=== PATIENT | male | born 1980 | race Caucasian/White ===

== ENCOUNTER 2021-08-01 18:47 | Emergency (ER) | payer BC, SELFPAY ==
--- NOTE | ~2021-08-01 | XR_ITS ---
EXAMINATION: XR CHEST CLINICAL INFORMATION: Cough COMPARISON: None TECHNIQUE: Frontal view of the chest was obtained. FINDINGS: No significant abnormality is noted involving the heart, lungs, mediastinum, bony thorax or soft tissues. XR/XR chest 1V IMPRESSION: Unremarkable examination.
[2021-08-01 19:07] VITALS: BP 00/00; PULSE 120; O2SAT 95
[2021-08-01 19:10] VITALS: BP 158/96; PULSE 141; RESP 16; TEMP 36.6; O2SAT 96; BMI 26.6
--- NOTE | 2021-08-01 19:20 | ED_ITS ---
HPI - Psych General Chief Complaint: ETOH/Substance Use <ROXY Weeks - Last Filed: 08/02/21 02:44> Stated Complaint: OD <ROXY Weeks Last Filed: 08/02/21 02:44> Time Seen by Provider: 08/01/21 19:14 <ROXY Weeks Last Filed: 08/02/21 02:44> Source: patient and EMS <ROXY Weeks Last Filed: 08/02/21 02:44> Mode of arrival: EMS <ROXY Weeks Last Filed: 08/02/21 02:44> Limitations: no limitations <ROXY Weeks Last Filed: 08/02/21 02:44> History of Present Illness HPI Narrative: This is a 40-year-old male no significant medical history presenting to the emergency department via EMS. According to patient patient fell asleep at the end of some [place] driveway, and was found by check a [employer] who then called EMS. Patient tells me he is not sure why he fell asleep he tells me he could have passed out. He tells me he takes Percocets and he thinks that maybe this could have caused it. He tells me he is under lot of stress however, he tells me is a 16-year-old daughter and financially this is a lot. He tells me he is a single father. He tells me he has not been using any drugs. He denies alcohol. Denies visual, auditory and tactile hallucinations. Denies SI and HI. Denies medical complaints. Upon my examination he appears diaphoretic. Per ems it was reported to them that he was foaming at the mouth. No seziure hx. No urine or bowel incontinece, no tongue trauma and patient is a&o X4 doesnt appear to be post ictal. <ROXY Weeks Last Filed: 08/02/21 02:44> MD complaint: anxiety <ROXY Weeks Last Filed: 08/02/21 02:44> Onset (ago): day(s) (1) <ROXY Weeks Last Filed: 08/02/21 02:44> Duration: constant <ROXY Weeks Last Filed: 08/02/21 02:44> Relieving factors: none <ROXY Weeks Last Filed: 08/02/21 02:44> Exacerbating factors: none <ROXY Weeks Last Filed: 08/02/21 02:44> Associated psychiatric symptoms: none <ROXY Weeks Last Filed: 08/02/21 02:44> Associated symptoms: denies other symptoms <ROXY Weeks Last Filed: 08/02/21 02:44> Treatments prior to arrival: none <ROXY Weeks Last Filed: 08/02/21 02:44> Related Data Home Medications: Previous Rx's Medication Instructions Recorded cephalexin 500 mg tablet 500 mg PO Q6H 7 Days #28 tab 08/01/21 doxycycline hyclate 100 mg capsule 100 mg PO BID 7 Days #14 cap 08/01/21 naloxone 4 mg/actuation nasal spray 4 mg INTRANASAL Q2M PRN #2 ea 08/01/21 <ROXY Weeks Last Filed: 08/02/21 02:44> Allergies/Adverse Reactions: Allergies Allergy/AdvReac Type Severity Reaction Status Date / Time Penicillins Allergy Severe Unknown Verified 08/01/21 22:00 <ROXY Weeks Last Filed: 08/02/21 02:44> Review of Systems Review of Systems: Constitutional : No Weight loss, No Fever, No Chills, No Fatigue, No Malaise ENT/Mouth : No sore throat, No Rhinorrhea Eyes: No Eye Pain, No Swelling, No Redness Cardiovascular : No Chest Pain, No SOB, No Dyspnea on Exertion, No Orthopnea, No Edema, No Palpitations Respiratory : No Cough, No Sputum, No Wheezing Gastrointestinal : No Nausea, No Vomiting, No Diarrhea, No Constipation, No abdominal Pain, No Hematochezia, No Melena Genitourinary : No Dysuria, No Urinary Frequency, No Hematuria, Musculoskeletal : No joint pain, No Myalgias, No Joint Swelling Skin : No Skin Lesions, No rash Neuro : No Weakness, No Numbness, No Dizziness, No Headache Psych : No Anxiety/Panic, No Depression All other systems reviewed and are negative <ROXY Weeks - Last Filed: 08/02/21 02:44> [facility] Past Medical History Attestation statement: The following information was validated with the patient. <ROXY Weeks - Last Filed: 08/02/21 02:44> Source: old records reviewed and nursing notes reviewed <ROXY Weeks - Last Filed: 08/02/21 02:44> Medical History: Medical History (Updated 08/01/21 @ 22:10 by ROXY Weeks) Substance abuse <ROXY Weeks - Last Filed: 08/02/21 02:44> Social History Social History: Social History Alcohol intake: current Alcohol intake frequency: 0-2 drinks per day Use of substances other than those prescribed or required for medical reasons: Yes Substance Use Type: Prescription Drugs Substance Use Frequency: Daily Last Used Substance: Hours (ago) Advance Directives: No Advance Directives Information Provided: No <ROXY Weeks - Last Filed: 08/02/21 02:44> Physical Exam Vital Signs: Vital Signs: Last Vital Signs Temp 98.0 F 08/02/21 07:36 Pulse 66 08/02/21 07:36 Resp 14 08/02/21 07:36 BP 117/68 08/02/21 07:36 Pulse Ox 97 08/02/21 07:36 BMI result Body Mass Index 26.6 vss <ROXY Weeks - Last Filed: 08/02/21 02:44> Vital Signs: Last Vital Signs Temp 98.0 F 08/02/21 07:36 Pulse 66 08/02/21 07:36 Resp 14 08/02/21 07:36 BP 117/68 08/02/21 07:36 Pulse Ox 97 08/02/21 07:36 BMI result Body Mass Index 26.6 <ROXY Gannon - Last Filed: 08/02/21 08:39> Appearance: Alert.? Oriented X3.? No acute distress.? Head: Normocephalic, atraumatic, no step-offs or deformities Eyes: Pupils equal, round and reactive to light.? ENT: Pharynx normal.? Neck: Normal inspection.? Neck supple.? CVS: Rapid rate normal rhythm likely sinus tachycardia. Pulses normal.? Respiratory: No respiratory distress.? Breath sounds normal.? Abdomen: Soft and nontender.? Skin: Skin warm and dry.? Normal skin color.? Normal skin turgor.?+ diaphoretic Extremities: No lower extremity edema.? No calf ttp. 5/5 strength to bilateral upper and lower extremities Back: No midline tenderness, no C-spine tenderness, full range of motion, no CVA tenderness bilaterally Neuro: Oriented X 3.? No motor deficit.? No sensory deficit. CN 2-12 intact <ROXY Weeks - Last Filed: 08/02/21 02:44> Course Course Course Narrative: 0839 08/02/2021: Patient still awaiting to be seen by N. Patient AOx3, no neurologic deficits at this time. VSS. <ROXY Gannon - Last Filed: 08/02/21 08:39> Reevaluation(s) Reevaluation #1: SUDE eval done by care team declining detox and services at this time. <ROXY Weeks - Last Filed: 08/02/21 02:44> Time: 19:55 <ROXY Weeks - Last Filed: 08/02/21 02:44> Reevaluation #2: Reported by [place] mother, he reports being si w/ plan to inject himself w/ heroin and . Now on a section 12. A 51 will be filled. <ROXY Weeks - Last Filed: 08/02/21 02:44> Time: 21:26 <ROXY Weeks - Last Filed: 08/02/21 02:44> Reevaluation #3: Patient reports to me that he has a sore spot on his head (right occiptal area), it appears to be a small abscess that is forming, not currently fluctuant with overlying warmth and cellulitis. Will start patient on p.o. antibiotics. He denies sob, cough, cp. Likely reason for patient's slight leukocytosis. No acute electrolyte abnormalities. Troponin slightly elevated will repeat in 3 hours. EKG pending patient does not report chest pain unlikely ACS. <ROXY Weeks - Last Filed: 08/02/21 02:44> Time: 22:09 <ROXY Weeks - Last Filed: 08/02/21 02:44> Additional Reevaluation(s): Initial trop 15.5 second 52.2 discussed this with . Recommends repeat trop at 12:45 and cpk total. Likely elevated from demand unlikley acs will continue to monitor. 0147 third trop 64.2 likley demand ischemia from persistent tachycardia and overdose patient still reports no chest pain. Discussed each of these trops with Dr. West. Patient continues to deny chest pain and EKG appears to be without evidence of acute ischemia. At this time patient will be placed in observation to allow more time to be evaluated by the behavioral health team. At time the observation was started patient, cooperative, no acute distress. Will continue to monitor. <ROXY Weeks Last Filed: 08/02/21 02:44> MDM - Psych MDM Narrative Medical decision making narrative: 1926 40 yo male presents after being found unresponsive by lisa NICHOLAS prior to arrival. Denies drug use. Denies SI and HI. No seiziure hx. No evident signs of truama PE significant for rapid regular rhythm, likely sinus tachycardia, diaphoresis. Lungs clear. Abdomen soft nontender nondistended. Neuro nonfocal. Bilateral pupils appear pinpoint. Plan at this time is EKG, troponin, lab work, medical clearance. I will have him speak to the care team. Will rule out ACS, drug use, ethanol. <ROXY Weeks - Last Filed: 08/02/21 02:44> Medical Records Attestation: I reviewed the patient's medical records. <ROXY Weeks Last Filed: 08/02/21 02:44> Lab Data Attestation: I reviewed the patient's lab results. <ROXY Weeks - Last Filed: 08/02/21 02:44> Result diagrams: : 08/01/21 19:46 08/01/21 19:46 <ROXY Weeks - Last Filed: 08/02/21 02:44> Labs: Lab Results 08/01/21 08/01/21 08/01/21 Range/Units 19:46 19:46 19:46 WBC 17.0 H (4.8-10.8) X10*3/uL RBC 5.33 (4.60-5.80) X10*6/uL Hgb 14.6 (14.0-18.0) g/dl Hct 46.0 (42.0-52.0) % MCV 86.3 (80.0-98.0) fL MCH 27.4 (27.0-33.0) pg MCHC 31.7 (31.0-36.0) g/dl RDW 13.2 (11.0-16.0) % Plt Count 236 (160-400) X10*3/uL MPV 12.1 (9.4-12.4) fL Immature Gran % (Auto) 0.6 H (0.0-0.4) % Neut % (Auto) 78.0 H (45-73) % Lymph % (Auto) 14.5 L (20-40) % [place] % (Auto) 5.2 (2-11) % Eos % (Auto) 1.2 (0-4) % Baso % (Auto) 0.5 (0-2) % Lymph # (Auto) 2.5 (1.2-4.9) X10*3/uL [place] # (Auto) 0.9 (0.1-1.2) X10*3/uL Eos # (Auto) 0.2 (0.0-0.4) X10*3/uL Baso # (Auto) 0.1 (0.0-0.2) X10*3/uL Abs Immat Gran (auto) 0.11 H (0.00-0.03) X10*3/uL Absolute Neuts (auto) 13.2 H (2.0-8.3) x10*3/uL Absolute Nucleated RBC 0.000 (0.0-0.012) X10*3/uL Nucleated RBC % (auto) 0.0 (0.0-0.2) /100WBC Sodium 140 (135-145) mmol/L Potassium 3.5 (3.3-5.1) mmol/L Chloride 99 (96-108) mmol/L Carbon Dioxide 25 (22-29) mmol/L Anion Gap 20 (12-20) BUN 13 (9-16) mg/dL Creatinine 1.34 (0.5-1.4) mg/dL Estim Creat Clear Calc 72.5 Estimated GFR 59 Random Glucose 138 H (60-115) mg/dL Calcium 9.9 (8.4-10.2) mg/dL Magnesium 2.4 (1.6-2.6) mg/dL Total Creatine Kinase 187 H (38-174) U/L Troponin I High Sens (<3.5-35.0) ng/L Urine Color Urine Appearance Urine pH (5.0-8.0) Ur Specific [place] (1.005-1.025) Urine Protein (NEG-TRACE) MG/DL Urine Glucose (UA) (NEG) MG/DL Urine Ketones (NEG) MG/DL Urine Blood (NEG) Urine Nitrite (NEG) Ur Leukocyte Esterase (NEG) Urine RBC (0) /HPF Urine WBC (0-4) /HPF Ur Squamous Epith Cells /LPF Urine Bacteria /LPF Urine Opiates Screen (Not Detect) Urine Fentanyl Screen (Not Detect) Ur Barbiturates Screen (Not Detect) Ur Phencyclidine Scrn (Not Detect) Ur Amphetamines Screen (Not Detect) U Benzodiazepines Scrn (Not Detect) Urine Cocaine Screen (Not Detect) U Marijuana (THC) Screen (Not Detect) Ethyl Alcohol 17 mg/dL COVID-19 ([facility]) (Negative) COVID-19 Clin Com 08/01/21 08/01/21 08/01/21 Range/Units 19:46 21:31 21:31 WBC (4.8-10.8) X10*3/uL RBC (4.60-5.80) X10*6/uL Hgb (14.0-18.0) g/dl Hct (42.0-52.0) % MCV (80.0-98.0) fL MCH (27.0-33.0) pg MCHC (31.0-36.0) g/dl RDW (11.0-16.0) % Plt Count (160-400) X10*3/uL MPV (9.4-12.4) fL Immature Gran % (Auto) (0.0-0.4) % Neut % (Auto) (45-73) % Lymph % (Auto) (20-40) % [place] % (Auto) (2-11) % Eos % (Auto) (0-4) % Baso % (Auto) (0-2) % Lymph # (Auto) (1.2-4.9) X10*3/uL [place] # (Auto) (0.1-1.2) X10*3/uL Eos # (Auto) (0.0-0.4) X10*3/uL Baso # (Auto) (0.0-0.2) X10*3/uL Abs Immat Gran (auto) (0.00-0.03) X10*3/uL Absolute Neuts (auto) (2.0-8.3) x10*3/uL Absolute Nucleated RBC (0.0-0.012) X10*3/uL Nucleated RBC % (auto) (0.0-0.2) /100WBC Sodium (135-145) mmol/L Potassium (3.3-5.1) mmol/L Chloride (96-108) mmol/L Carbon Dioxide (22-29) mmol/L Anion Gap (12-20) BUN (9-16) mg/dL Creatinine (0.5-1.4) mg/dL Estim Creat Clear Calc Estimated GFR Random Glucose (60-115) mg/dL Calcium (8.4-10.2) mg/dL Magnesium (1.6-2.6) mg/dL Total Creatine Kinase (38-174) U/L Troponin I High Sens 15.5 (<3.5-35.0) ng/L Urine Color YELLOW Urine Appearance CLEAR Urine pH 5.5 (5.0-8.0) Ur Specific [place] >= 1.030 H (1.005-1.025) Urine Protein NEG (NEG-TRACE) MG/DL Urine Glucose (UA) NEG (NEG) MG/DL Urine Ketones NEG (NEG) MG/DL Urine Blood NEG (NEG) Urine Nitrite NEG (NEG) Ur Leukocyte Esterase NEG (NEG) Urine RBC 0 (0) /HPF Urine WBC 0-2 (0-4) /HPF Ur Squamous Epith Cells TRACE /LPF Urine Bacteria NONE /LPF Urine Opiates Screen POSITIVE H (Not Detect) Urine Fentanyl Screen POSITIVE H (Not Detect) Ur Barbiturates Screen Not Detected (Not Detect) Ur Phencyclidine Scrn Not Detected (Not Detect) Ur Amphetamines Screen Not Detected (Not Detect) U Benzodiazepines Scrn Not Detected (Not Detect) Urine Cocaine Screen Not Detected (Not Detect) U Marijuana (THC) Screen POSITIVE H (Not Detect) Ethyl Alcohol mg/dL COVID-19 ([facility]) (Negative) COVID-19 Clin Com 08/01/21 08/02/21 08/02/21 Range/Units 22:44 00:58 06:20 WBC (4.8-10.8) X10*3/uL RBC (4.60-5.80) X10*6/uL Hgb (14.0-18.0) g/dl Hct (42.0-52.0) % MCV (80.0-98.0) fL MCH (27.0-33.0) pg MCHC (31.0-36.0) g/dl RDW (11.0-16.0) % Plt Count (160-400) X10*3/uL MPV (9.4-12.4) fL Immature Gran % (Auto) (0.0-0.4) % Neut % (Auto) (45-73) % Lymph % (Auto) (20-40) % [place] % (Auto) (2-11) % Eos % (Auto) (0-4) % Baso % (Auto) (0-2) % Lymph # (Auto) (1.2-4.9) X10*3/uL [place] # (Auto) (0.1-1.2) X10*3/uL Eos # (Auto) (0.0-0.4) X10*3/uL Baso # (Auto) (0.0-0.2) X10*3/uL Abs Immat Gran (auto) (0.00-0.03) X10*3/uL Absolute Neuts (auto) (2.0-8.3) x10*3/uL Absolute Nucleated RBC (0.0-0.012) X10*3/uL Nucleated RBC % (auto) (0.0-0.2) /100WBC Sodium (135-145) mmol/L Potassium (3.3-5.1) mmol/L Chloride (96-108) mmol/L Carbon Dioxide (22-29) mmol/L Anion Gap (12-20) BUN (9-16) mg/dL Creatinine (0.5-1.4) mg/dL Estim Creat Clear Calc Estimated GFR Random Glucose (60-115) mg/dL Calcium (8.4-10.2) mg/dL Magnesium (1.6-2.6) mg/dL Total Creatine Kinase (38-174) U/L Troponin I High Sens 52.2 H D 64.2 H (<3.5-35.0) ng/L Urine Color Urine Appearance Urine pH (5.0-8.0) Ur Specific [place] (1.005-1.025) Urine Protein (NEG-TRACE) MG/DL Urine Glucose (UA) (NEG) MG/DL Urine Ketones (NEG) MG/DL Urine Blood (NEG) Urine Nitrite (NEG) Ur Leukocyte Esterase (NEG) Urine RBC (0) /HPF Urine WBC (0-4) /HPF Ur Squamous Epith Cells /LPF Urine Bacteria /LPF Urine Opiates Screen (Not Detect) Urine Fentanyl Screen (Not Detect) Ur Barbiturates Screen (Not Detect) Ur Phencyclidine Scrn (Not Detect) Ur Amphetamines Screen (Not Detect) U Benzodiazepines Scrn (Not Detect) Urine Cocaine Screen (Not Detect) U Marijuana (THC) Screen (Not Detect) Ethyl Alcohol mg/dL COVID-19 ([facility]) Negative (Negative) COVID-19 Clin Com See Note <ROXY Weeks - Last Filed: 08/02/21 02:44> Lab Results 08/01/21 08/01/21 08/01/21 Range/Units 19:46 19:46 19:46 WBC 17.0 H (4.8-10.8) X10*3/uL RBC 5.33 (4.60-5.80) X10*6/uL Hgb 14.6 (14.0-18.0) g/dl Hct 46.0 (42.0-52.0) % MCV 86.3 (80.0-98.0) fL MCH 27.4 (27.0-33.0) pg MCHC 31.7 (31.0-36.0) g/dl RDW 13.2 (11.0-16.0) % Plt Count 236 (160-400) X10*3/uL MPV 12.1 (9.4-12.4) fL Immature Gran % (Auto) 0.6 H (0.0-0.4) % Neut % (Auto) 78.0 H (45-73) % Lymph % (Auto) 14.5 L (20-40) % [place] % (Auto) 5.2 (2-11) % Eos % (Auto) 1.2 (0-4) % Baso % (Auto) 0.5 (0-2) % Lymph # (Auto) 2.5 (1.2-4.9) X10*3/uL [place] # (Auto) 0.9 (0.1-1.2) X10*3/uL Eos # (Auto) 0.2 (0.0-0.4) X10*3/uL Baso # (Auto) 0.1 (0.0-0.2) X10*3/uL Abs Immat Gran (auto) 0.11 H (0.00-0.03) X10*3/uL Absolute Neuts (auto) 13.2 H (2.0-8.3) x10*3/uL Absolute Nucleated RBC 0.000 (0.0-0.012) X10*3/uL Nucleated RBC % (auto) 0.0 (0.0-0.2) /100WBC Sodium 140 (135-145) mmol/L Potassium 3.5 (3.3-5.1) mmol/L Chloride 99 (96-108) mmol/L Carbon Dioxide 25 (22-29) mmol/L Anion Gap 20 (12-20) BUN 13 (9-16) mg/dL Creatinine 1.34 (0.5-1.4) mg/dL Estim Creat Clear Calc 72.5 Estimated GFR 59 Random Glucose 138 H (60-115) mg/dL Calcium 9.9 (8.4-10.2) mg/dL Magnesium 2.4 (1.6-2.6) mg/dL Total Creatine Kinase 187 H (38-174) U/L Troponin I High Sens (<3.5-35.0) ng/L Urine Color Urine Appearance Urine pH (5.0-8.0) Ur Specific [place] (1.005-1.025) Urine Protein (NEG-TRACE) MG/DL Urine Glucose (UA) (NEG) MG/DL Urine Ketones (NEG) MG/DL Urine Blood (NEG) Urine Nitrite (NEG) Ur Leukocyte Esterase (NEG) Urine RBC (0) /HPF Urine WBC (0-4) /HPF Ur Squamous Epith Cells /LPF Urine Bacteria /LPF Urine Opiates Screen (Not Detect) Urine Fentanyl Screen (Not Detect) Ur Barbiturates Screen (Not Detect) Ur Phencyclidine Scrn (Not Detect) Ur Amphetamines Screen (Not Detect) U Benzodiazepines Scrn (Not Detect) Urine Cocaine Screen (Not Detect) U Marijuana (THC) Screen (Not Detect) Ethyl Alcohol 17 mg/dL COVID-19 ([facility]) (Negative) COVID-19 Clin Com 08/01/21 08/01/21 08/01/21 Range/Units 19:46 21:31 21:31 WBC (4.8-10.8) X10*3/uL RBC (4.60-5.80) X10*6/uL Hgb (14.0-18.0) g/dl Hct (42.0-52.0) % MCV (80.0-98.0) fL MCH (27.0-33.0) pg MCHC (31.0-36.0) g/dl RDW (11.0-16.0) % Plt Count (160-400) X10*3/uL MPV (9.4-12.4) fL Immature Gran % (Auto) (0.0-0.4) % Neut % (Auto) (45-73) % Lymph % (Auto) (20-40) % [place] % (Auto) (2-11) % Eos % (Auto) (0-4) % Baso % (Auto) (0-2) % Lymph # (Auto) (1.2-4.9) X10*3/uL [place] # (Auto) (0.1-1.2) X10*3/uL Eos # (Auto) (0.0-0.4) X10*3/uL Baso # (Auto) (0.0-0.2) X10*3/uL Abs Immat Gran (auto) (0.00-0.03) X10*3/uL Absolute Neuts (auto) (2.0-8.3) x10*3/uL Absolute Nucleated RBC (0.0-0.012) X10*3/uL Nucleated RBC % (auto) (0.0-0.2) /100WBC Sodium (135-145) mmol/L Potassium (3.3-5.1) mmol/L Chloride (96-108) mmol/L Carbon Dioxide (22-29) mmol/L Anion Gap (12-20) BUN (9-16) mg/dL Creatinine (0.5-1.4) mg/dL Estim Creat Clear Calc Estimated GFR Random Glucose (60-115) mg/dL Calcium (8.4-10.2) mg/dL Magnesium (1.6-2.6) mg/dL Total Creatine Kinase (38-174) U/L Troponin I High Sens 15.5 (<3.5-35.0) ng/L Urine Color YELLOW Urine Appearance CLEAR Urine pH 5.5 (5.0-8.0) Ur Specific [place] >= 1.030 H (1.005-1.025) Urine Protein NEG (NEG-TRACE) MG/DL Urine Glucose (UA) NEG (NEG) MG/DL Urine Ketones NEG (NEG) MG/DL Urine Blood NEG (NEG) Urine Nitrite NEG (NEG) Ur Leukocyte Esterase NEG (NEG) Urine RBC 0 (0) /HPF Urine WBC 0-2 (0-4) /HPF Ur Squamous Epith Cells TRACE /LPF Urine Bacteria NONE /LPF Urine Opiates Screen POSITIVE H (Not Detect) Urine Fentanyl Screen POSITIVE H (Not Detect) Ur Barbiturates Screen Not Detected (Not Detect) Ur Phencyclidine Scrn Not Detected (Not Detect) Ur Amphetamines Screen Not Detected (Not Detect) U Benzodiazepines Scrn Not Detected (Not Detect) Urine Cocaine Screen Not Detected (Not Detect) U Marijuana (THC) Screen POSITIVE H (Not Detect) Ethyl Alcohol mg/dL COVID-19 ([facility]) (Negative) COVID-19 Clin Com 08/01/21 08/02/21 08/02/21 Range/Units 22:44 00:58 06:20 WBC (4.8-10.8) X10*3/uL RBC (4.60-5.80) X10*6/uL Hgb (14.0-18.0) g/dl Hct (42.0-52.0) % MCV (80.0-98.0) fL MCH (27.0-33.0) pg MCHC (31.0-36.0) g/dl RDW (11.0-16.0) % Plt Count (160-400) X10*3/uL MPV (9.4-12.4) fL Immature Gran % (Auto) (0.0-0.4) % Neut % (Auto) (45-73) % Lymph % (Auto) (20-40) % [place] % (Auto) (2-11) % Eos % (Auto) (0-4) % Baso % (Auto) (0-2) % Lymph # (Auto) (1.2-4.9) X10*3/uL [place] # (Auto) (0.1-1.2) X10*3/uL Eos # (Auto) (0.0-0.4) X10*3/uL Baso # (Auto) (0.0-0.2) X10*3/uL Abs Immat Gran (auto) (0.00-0.03) X10*3/uL Absolute Neuts (auto) (2.0-8.3) x10*3/uL Absolute Nucleated RBC (0.0-0.012) X10*3/uL Nucleated RBC % (auto) (0.0-0.2) /100WBC Sodium (135-145) mmol/L Potassium (3.3-5.1) mmol/L Chloride (96-108) mmol/L Carbon Dioxide (22-29) mmol/L Anion Gap (12-20) BUN (9-16) mg/dL Creatinine (0.5-1.4) mg/dL Estim Creat Clear Calc Estimated GFR Random Glucose (60-115) mg/dL Calcium (8.4-10.2) mg/dL Magnesium (1.6-2.6) mg/dL Total Creatine Kinase (38-174) U/L Troponin I High Sens 52.2 H D 64.2 H (<3.5-35.0) ng/L Urine Color Urine Appearance Urine pH (5.0-8.0) Ur Specific [place] (1.005-1.025) Urine Protein (NEG-TRACE) MG/DL Urine Glucose (UA) (NEG) MG/DL Urine Ketones (NEG) MG/DL Urine Blood (NEG) Urine Nitrite (NEG) Ur Leukocyte Esterase (NEG) Urine RBC (0) /HPF Urine WBC (0-4) /HPF Ur Squamous Epith Cells /LPF Urine Bacteria /LPF Urine Opiates Screen (Not Detect) Urine Fentanyl Screen (Not Detect) Ur Barbiturates Screen (Not Detect) Ur Phencyclidine Scrn (Not Detect) Ur Amphetamines Screen (Not Detect) U Benzodiazepines Scrn (Not Detect) Urine Cocaine Screen (Not Detect) U Marijuana (THC) Screen (Not Detect) Ethyl Alcohol mg/dL COVID-19 ([facility]) Negative (Negative) COVID-19 Clin Com See Note <ROXY Gannon - Last Filed: 08/02/21 08:39> Critical Care Time Critical Care Time Critical Care Time: No <ROXY Weeks Last Filed: 08/02/21 02:44> Discharge Plan Discharge Clinical Impression: Polysubstance abuse, Anxiety, Cellulitis <ROXY Weeks Last Filed: 08/02/21 02:44> Patient Disposition: Still a Patient <ROXY Weeks Last Filed: 08/02/21 02:44> Instructions: Cellulitis (ED), Polysubstance Abuse (ED), Anxiety (ED) <ROXY Weeks - Last Filed: 08/02/21 02:44> Additional Instructions: Take your medications as prescribed. If you were prescribed antibiotics today, it is important that you take your medication to their entirety, do not skip any doses, do not finish them early. Follow-up with your primary care provider this week. Return to the emergency department with new or worsening symptoms. Such as fevers, chills, chest pain, shortness of breath, nausea, vomiting, dizziness, headache, vision changes, lethargy In case of emergency call 911 <ROXY Weeks Last Filed: 08/02/21 02:44> Prescriptions: New cephalexin 500 mg tablet 500 mg PO Q6H 7 Days Qty: 28 0RF doxycycline hyclate 100 mg capsule 100 mg PO BID 7 Days Qty: 14 0RF naloxone 4 mg/actuation spray,non-aerosol 4 mg intranasal Q2M PRN (Reason: opioid overdose) Qty: 2 0RF Rx Instructions: spray 1 dose into ONE nostril; alternate nostrils w each dose until help arrives <ROXY Weeks - Last Filed: 08/02/21 02:44> Referrals: Roddy Nolasco MD [Primary Care Provider] - <ROXY Weeks - Last Filed: 08/02/21 02:44>
--- NOTE | 2021-08-01 19:24 | ECG_ITS ---
Test Reason : PALPITATIONS Blood Pressure : / mmHG Vent. Rate : 084 BPM Atrial Rate : 084 BPM P-R Int : 182 ms QRS Dur : 104 ms QT Int : 368 ms P-R-T Axes : 080 043 040 degrees QTc Int : 434 ms Normal sinus rhythm Possible Left atrial enlargement Incomplete right bundle branch block Borderline ECG Referred By: Hellen James Electronically Signed By:MARQUIS AVERY MD
[2021-08-01 20:03] LABS: MANUAL DIFF FLAG NO
[2021-08-01 20:06] LABS: Basophils Absolute Auto 0.1 X10*3/uL (0.0-0.2); Basophils Percent Auto 0.5 % (0-2); Eosinophils Absolute Auto 0.2 X10*3/uL (0.0-0.4); Eosinophils Percent Auto 1.2 % (0-4); Hemoglobin 14.6 g/dl (14.0-18.0); Imm Gran Abs Auto 0.11 X10*3/uL (0.00-0.03); Imm Gran Pct Auto 0.6 % (0.0-0.4); Lymphocytes Absolute Auto 2.5 X10*3/uL (1.2-4.9); Lymphocytes Percent Auto 14.5 % (20-40); Mean Corpuscular HGB Conc 31.7 g/dl (31.0-36.0); Mean Corpuscular Hemoglobin 27.4 pg (27.0-33.0); Mean Corpuscular Volume 86.3 fL (80.0-98.0); Mean Platelet Volume 12.1 fL (9.4-12.4); Monocytes Absolute Auto 0.9 X10*3/uL (0.1-1.2); Monocytes Percent Auto 5.2 % (2-11); Neutrophils Absolute Auto 13.2 x10*3/uL (2.0-8.3); Platelet Count 236 X10*3/uL (160-400); Red Blood Count 5.33 X10*6/uL (4.60-5.80); Red Cell Distribution Width 13.2 % (11.0-16.0)
[2021-08-01 20:15] LABS: Ethanol 17 mg/dL
[2021-08-01 20:21] LABS: Anion Gap 20 (12-20); Blood Urea Nitrogen 13 mg/dL (9-16); Calcium 9.9 mg/dL (8.4-10.2); Carbon Dioxide 25 mmol/L (22-29); Chloride 99 mmol/L (96-108); Creatinine Clr Calc Pharmacy 72.5; Estimated Glomerular Filt Rate 59; Glucose Random 138 mg/dL (60-115); Magnesium 2.4 mg/dL (1.6-2.6); Potassium 3.5 mmol/L (3.3-5.1); Sodium 140 mmol/L (135-145)
[2021-08-01 20:24] LABS: Troponin-I High Sensitivity 15.5 ng/L (<3.5-35.0)
--- NOTE | 2021-08-01 20:58 | MHC.RECOVSUP ---
Addendum entered by Magen Carlton 08/01/21 21:27: Patients mother is worried because she said her son told her he wants to kill himself. She's scared to bring him home. Patients mother is with him now. I told the PA. Original Note: ? Reason for consult:Recovery Support o Current location:[id number] o Identified substance use concern: Percocet,ETOH - Withdrawal - Support ? Intervention: o Community resources provided o Harm reduction discussion ? Plan: o Referral to [facility] o Patient to follow up with [facility] after discharge ? Additional information:Patient refuses to go to detox. Had a harm reduction discussion. Discussed MAT with the patient. Gave patient community resources.
--- NOTE | 2021-08-01 21:01 | MHC.CARE ---
CARE team met with pt to complete a SUDE at this time. Pt appears restless, and all over the place. 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 He reports he is not stable and had to move in with his parents, he is a single day and having to care for his two daughters. Pt reports he has PTSD and ADHD but also reporting that he hasn't seen a therapist in years. We discussed treatment options and pt declines reporting that he cannot afford it, can't afford co-pays etc. Pt was encouraged to seek services once he is ready and do no recommend self medicating with drugs. Pt denies SI/HI and advised to call CARE team if is later interested in services.
[2021-08-01 21:38] LABS: Appearance Urine CLEAR; Color Urine YELLOW; Glucose Urine UA NEG (NEG); Leukocyte Esterase Urine NEG (NEG); Nitrite Urine NEG (NEG); PH 5.5 (5.0-8.0); Specific Gravity - Urine >= 1.030 (1.005-1.025); Urine Blood NEG (NEG); Urine Ketones NEG (NEG); Urine Protein NEG (NEG-TRACE)
[2021-08-01 21:51] LABS: Amphetamine Screen Urine Not Detected (Not Detect); Barbiturates, Urine Not Detected (Not Detect); Benzodiazepines Screen Urine Not Detected (Not Detect); Cannabinoid Screen Urine POSITIVE (Not Detect); Cocaine Screen Urine Not Detected (Not Detect); Fentanyl, urine POSITIVE (Not Detect); Opiate Screen Urine POSITIVE (Not Detect); Phencyclidine Screen Urine Not Detected (Not Detect)
[2021-08-01 21:52] LABS: RBC Urine 0 /HPF (0); Squamous Epithelial Cell Urine TRACE /LPF; WBC Urine 0-2 /HPF (0-4)
[2021-08-01 22:23] VITALS: BP 136/79; PULSE 91; RESP 20; TEMP 37.2; O2SAT 94
[2021-08-01] MEDS: cephALEXin 500 MG CAPSULE PO (23:08)
[2021-08-01 23:09] LABS: Troponin-I High Sensitivity 52.2 ng/L (<3.5-35.0)
[2021-08-02 00:36] VITALS: BP 111/74; PULSE 77; RESP 14; TEMP 36.7; O2SAT 93
[2021-08-02 01:24] LABS: Troponin-I High Sensitivity 64.2 ng/L (<3.5-35.0)
[2021-08-02] MEDS: cephALEXin 500 MG CAPSULE PO ×2 (03:38→09:27)
--- NOTE | 2021-08-02 06:17 | PC.NURSE ---
Patient slept most part of the night, no distress observed/reported, asymptomatic of withdrawal at this time, DCF came overnight shift spoke with patient, patient is on Abt. for abscess on his head, patient compliant with medication, awaiting care team evaluation, will continue to monitor.
[2021-08-02 06:42] LABS: COVID-19 Test Negative (Negative)
[2021-08-02 07:36] VITALS: BP 117/68; PULSE 66; RESP 14; TEMP 36.7; O2SAT 97
--- NOTE | 2021-08-02 07:46 | PC.NURSE ---
patient appears to remain asleep at present respirations are even and unlabored patient appears in no distress
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
--- NOTE | 2021-08-02 13:21 | MHC.CARE ---
Pt has an appointment with [facility] ([facility]) on FridayAugust 27 @ 3:00PM w/ Cyndee Barrett. Pt was called and notified.
== END 2021-08-02 11:58 | disposition home or self-care (01) ==
PROVIDERS: Emergency Medicine; Physician Assistant; Emergency Provider Internal Medicine; PCP Internal Medicine
DX: T40.2X1A Poisoning by other opioids, accidental (unintentional), initial encounter (principal); Y92.9 Unspecified place or not applicable; F41.1 Generalized anxiety disorder; F43.0 Acute stress reaction; R00.0 Tachycardia, unspecified; F10.129 Alcohol abuse with intoxication, unspecified; F11.90 Opioid use, unspecified, uncomplicated; F12.90 Cannabis use, unspecified, uncomplicated; Z20.822 Contact with and (suspected) exposure to COVID-19; Z79.899 Other long term (current) drug therapy; Y90.0 Blood alcohol level of less than 20 mg/100 ml
CPT/HCPCS: 36415; 71045; 80048; 80307; 81001; 82077; 82550; 83735; 84484; 85025; 87635; 93005; 99285

== ENCOUNTER 2021-08-24 08:30 | Outpatient (RCR) | payer BC, SELFPAY ==
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
[2021-08-16 14:29] VITALS: BMI 26.5
--- NOTE | 2021-08-16 15:01 | PC.NURSE ---
Case opened in Treatment Team.
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
--- NOTE | 2021-08-22 10:19 | PC.NURSE ---
Patient not scheduled to attend the program today d/t an appointment.
--- NOTE | 2021-08-24 14:03 | PC.NURSE ---
Patient discharged from the program today. He is prescribed Narcan, no other prescription medications. Patient denied SI, no safety concerns. Recommended patient attend online substance use groups for more support. Patient stated he has the list of online substance groups from [facility].
--- NOTE | 2021-08-24 15:25 | P.PNPSP_ITS ---
Subjective Subjective Date of Service: 08/24/21 Reason For Visit: adjustment d/o with anxiety Guardianship: No Medical Problems Affecting Mental Status: No Interim History: Patient describes mood as ?I am good ?. Denies dysphoric mood, anxiety. No SI/HI, no safety concerns. No psychiatric medications, not interested in meds at this time. Reports continued abstinence from alcohol and other substances. Attending Groups: Yes Review of Systems Acute medical concerns: No Medical Review of Systems: unchanged Review of Systems Review of Systems Yes all other systems are reviewed and are negative Constitutional: Reports no additional constitutional complaints Eyes: Reports no additional eye complaints Reports system reviewed and no additional complaints, except as documented Mental Status Exam Mental Status Exam Narrative: NAD. Alert and oriented, fully engaged during encounter. Bright mood and affect. Patient Appearance: Well Grooomed and Appropriate Patient Orientation: Person, Place, Time and Situation Level of Consciousness: Awake, Appropriate and Alert Patient Behavior: Guarded, Cooperative and Good Eye Contact Mood Description: Happy Affect Description: Appropriate Patient Cognition Impaired: No Ability to Follow Directions: Good Speech Pattern: Clear, Appropriate and Coherent Memory Description: Intact Hallucinations: None Delusions: Not Present Thought Process: Intact Thought Content: positive for Intact Judgement: Good Judgement and Insight: Patient reports he is focusing on his decisions, their consequences, in making healthy decisions going forward. Diagnostics Vital Signs (24Hr): BMI result Body Mass Index 26.5 Assessment & Plan Assessment & Plan (1) Opioid use disorder, severe, dependence: Status: Acute Code(s): F11.20 - Opioid dependence, uncomplicated Assessment and Plan: Patient reports he continues to abstain from using substances, including alcohol, opioids, marijuana. He reports he did over use opioids, but is now focused on making healthy decisions. He reports ?I feel like come on track now ?. He has fully participated in the COD groups while here, and has shared insight full comments as well as provided positive feedback to other group members. We discussed recovery support, patient was encouraged to build a support network. He states he has an appointment with behavioral health that his doctor's office, and hopes to address some of that there. He was encouraged to try a self-help support group, such as a 12 step group. He stated that he would consider it. Patient was given prescription for naloxone while in emergency department earlier this month, he was encouraged to keep it with him in case of a potential relapse. (2) Depression, major, recurrent, moderate: Status: Acute Code(s): F33.1 - Major depressive disorder, recurrent, moderate Assessment and Plan: Patient reports overall feeling his mood is much improved, describes his mood as happy at this time. States that partial has been helpful. Express hope for future, looking forward to discharge from program today. No thoughts of harm to self or others, no safety concern. (3) Generalized anxiety disorder: Status: Acute Code(s): F41.1 - Generalized anxiety disorder Plan 1. Patient appears stable for discharge from [facility] at this time. 2. Patient will follow-up with behavioral health appointment at his primary care office going forward. Patient educated on: medication risk/benefits, substance abuse and therapeutic strategies Informed Consent: understands Reason for contiued partial hosp. stay Substantial Risk for: stable for discharge Certification I certify that partial hospital treatment is medically necessary due to the symptoms and problems resulting from the patient's mental illness and the failure to treat the patient at the partial hospital level of care would likely result in the patient requiring inpatient psychiatric care which could not be prevented at a less intensive level of care. I spent minutes with the patient and/or on the patient floor today, greater than?50% of which was spent counseling/coordinating care. Discharge Plan Discharge Attending provider: Colby Rainey Medications: No Action naloxone 4 mg/actuation spray,non-aerosol 4 mg intranasal Q2M PRN (Reason: opioid overdose) Qty: 2 0RF Rx Instructions: spray 1 dose into ONE nostril; alternate nostrils w each dose until help arrives Stand Alone Forms: Patient Portal Discharge page Telehealth Telehealth Location of provider rendering services: practice address Location of patient: address on file Patient Identification confirmed using: Name, : Yes Telehealth method: video Patient verbally consented to treatment: Yes Patient verbally consented to billing insurance company: Yes Patient informed of any privacy concerns related to visit: Yes Minutes spent on Phone/Video with Pt.: 15
== END 2021-08-24 23:59 | disposition home or self-care (01) ==
LOC: HO.PHPA 08:30
PROVIDERS: Visit Provider Psychiatry & Neurology Psychiatry
DX: F33.1 Major depressive disorder, recurrent, moderate (principal); F41.1 Generalized anxiety disorder; F11.20 Opioid dependence, uncomplicated
CPT/HCPCS: 90791; 90853

== ENCOUNTER → 2022-01-21 08:16 | Outpatient (BNVA) | payer OTHER, BC, SELFPAY | PROVIDERS: PCP Internal Medicine; Visit Provider Internal Medicine | DX: M54.16 Radiculopathy, lumbar region (principal); M47.812 Spondylosis without myelopathy or radiculopathy, cervical region | CPT/HCPCS: 99202 ==